=== PATIENT | male | born 1940 | race Caucasian/White ===

== ENCOUNTER → 2016-10-19 | Outpatient (CLI) | payer MEDICARE, OTHER ==
[~2016-10-19] MED LIST: AMLO1CAP7 PO; EMPA25TA PO; EZET10TA5 PO; GLIP5TAB13 PO; HYDR-3812 PO; LABE200T3 PO; LEVO500T2 PO; LEVO50TA6 PO; METF750T2 PO; MONT10TA24 PO; TERA10CA3 PO
--- OUTSIDE RECORDS SUMMARY | 2016-10-19 10:35 | XMS REPORT | Continuity of Care Document ---
Author Author [facility] Organization [facility] Address Unknown Phone Unavailable Care Team Providers Care After [employer] Program Coordinator Name Role Phone MARGARITO AMBROCIO MD PCP Insurance Providers Payer Name Policy Number Subscriber Name Relationship [employer] [id number] Gideon Ponce 19 Self / Same As Patient GE [id number] Gideon Ponce 19 Self / Same As Patient Advance Directives Directive Response Recorded Date/Time Advance Directives No 03/05/16 8:53am Resuscitation Status Full Code 03/05/16 8:53am Problems No problem information available. Medications Current Home Medications Medication Dose Units Route Directions Days/Qty Instructions Start Date Glipizide 5 Mg 5 Mg Oral Daily 03/05/16 Labetalol Hcl 200 Mg 400 Mg Oral Twice A Day take 2 (200mg) tabs 03/05 Terazosin Hcl 10 Mg 10 Mg Oral Bedtime 03/05/16 Levothyroxine Sodium 50 Mcg 50 Mcg Oral Daily 03/05/16 Metformin Hcl 750 Mg 750 Mg Oral Twice A Day 03/05/16 Empagliflozin 25 Mg 25 Mg Oral Daily 03/05/16 Ezetimibe 10 Mg 10 Mg Oral Daily 03/05/16 Montelukast Sodium 10 Mg 10 Mg Oral Bedtime 03/05/16 Amlodipine Besylate/Benazepril 1 Each 1 Each Oral Daily 03/05/16 Social History Social History Problem Response Recorded Date/Time Alcohol Use Occasionally Uses 03/05/2016 8:53am Recreational Drug Use No 03/05/2016 8:53am Recent Foreign Travel No 03/05/2016 8:53am Recent Infectious Disease Exposure No 03/05/2016 8:53am Hospitalization with Isolation Denies 03/05/2016 8:53am Smoking Status Never a Smoker 03/05/2016 9:02am Query Response Start Date Stop Date Smoking Status Never a Smoker Hospital Discharge Instructions No hospital discharge instructions. Plan of Care Discharge Date 03/05/16 9:25am Prescriptions See Medication Section Functional Status No functional status results. Allergies, Adverse Reactions, Alerts No known allergies. Immunizations No immunization records. Vital Signs Acute Vital Signs Vital Response Date/Time Pulse Rate (adult) 66 bpm (60 - 90) 03/05/2016 8:53am O2 Sat by Pulse Oximetry 94 % (88 - 100) 03/05/2016 8:53am Blood Pressure 147/84 mm Hg 03/05/2016 8:53am Height (Feet) 5 feet 03/05/2016 8:53am Height (Inches) 6.00 inches 03/05/2016 8:53am Height (Calculated Centimeters) 167.665811 cm 03/05/2016 8:53am Weight (Pounds) 220 pounds 03/05/2016 8:53am Weight (Ounces) 0.0 oz 03/05/2016 8:53am Weight (Calculated Grams) 48242.322 gm 03/05/2016 8:53am Weight (Calculated Kilograms) 99.774982 kilograms 03/05/2016 8:53am Calculated BMI 36.61 03/05/2016 8:53am Results Laboratory Results Test Name Result Units Flags Reference Collection Date/Time Result Date/ Time Comments White Blood Count 10.8 10^3/uL 4.3-11.0 03/05/2016 9:15am 03/05/2016 9: 31am Red Blood Count 4.51 10^6/uL 4.35-5.85 03/05/2016 9:15am 03/05/2016 9: 31am Hemoglobin 15.2 G/DL 13.3-17.7 03/05/2016 9:15am 03/05/2016 9:31am Hematocrit 45 % 40-54 03/05/2016 9:15am 03/05/2016 9:31am Mean Corpuscular Volume 100 FL H 80-99 03/05/2016 9:15am 03/05/2016 9: 31am Mean Corpuscular Hemoglobin 34 PG 25-34 03/05/2016 9:1503/05/2016 9: 31am Mean Corpuscular Hemoglobin Concent 34 G/DL 32-36 03/05/2016 9: 9:31am Red Cell Distribution Width 14.0 % 10.0-14.5 03/05/2016 9:2015 9:31am Platelet Count 216 10^3/uL 130-400 03/05/2016 9:03/05/2016 9:31am Mean Platelet Volume 9.4 FL 7.4-10.4 03/05/2016 9:03/05/2016 9: 31am Neutrophils (%) (Auto) 72 % 42-75 03/05/2016 9:03/05/2016 9:31am Lymphocytes (%) (Auto) 15 % 12-44 03/05/2016 9:03/05/2016 9:31am Monocytes (%) (Auto) 8 % 0-12 03/05/2016 9:03/05/2016 9:31am Eosinophils (%) (Auto) 4 % 0-10 03/05/2016 9:03/05/2016 9:31am Basophils (%) (Auto) 1 % 0-10 03/05/2016 9:03/05/2016 9:31am Neutrophils # (Auto) 7.9 X 10^3 H 1.8-7.8 03/05/2016 9:03/05/2016 9: 31am Lymphocytes # (Auto) 1.6 X 10^3 1.0-4.0 03/05/2016 9:03/05/2016 9: 31am Monocytes # (Auto) 0.8 X 10^3 0.0-1.0 03/05/2016 9:03/05/2016 9: 31am Eosinophils # (Auto) 0.4 10^3/uL H 0.0-0.3 03/05/2016 9:03/05/2016 9 :31am Basophils # (Auto) 0.1 10^3/uL 0.0-0.1 03/05/2016 9:03/05/2016 9: 31am Sodium Level 138 MMOL/L 135-145 03/05/2016 9:15am 03/05/2016 9:56am Potassium Level 4.1 MMOL/L 3.6-5.0 03/05/2016 9:15am 03/05/2016 9:56am Chloride Level 101 MMOL/L 98-107 03/05/2016 9:15am 03/05/2016 9:56am Carbon Dioxide Level 23 MMOL/L 21-32 03/05/2016 9:15am 03/05/2016 9: 56am Anion Gap 14 MMOL/L 5-14 03/05/2016 9:15am 03/05/2016 9:56am Blood Urea Nitrogen 14 MG/DL 7-18 03/05/2016 9:15am 03/05/2016 9:56am Creatinine 1.04 MG/DL 0.60-1.30 03/05/2016 9:15am 03/05/2016 9:56am BUN/Creatinine Ratio 13 03/05/2016 9:15am 03/05/2016 9:56am Estimat Glomerular Filtration Rate > 60 03/05/2016 9:15am 2015 9:56am GFR INTERPRETIVE DATA UNITS FOR ESTIMATED GFR (eGFR): mL/min/1.73 M2 REFERENCE RANGE FOR ESTIMATED GFR (eGFR) eGFR NORMAL eGFR >60 MODERATELY DECREASED eGFR 30-59 SEVERLY DECREASED eGFR 15-29 KIDNEY FAILURE <15 (OR DIALYSIS) Glucose Level 229 MG/DL H 70-105 03/05/2016 9:15am 03/05/2016 9:56am Calcium Level 9.7 MG/DL 8.5-10.1 03/05/2016 9:15am 03/05/2016 9:56am Procedures Procedure Status Date Provider(s) Tracing only of electrocardiogram Active 03/05/16 VIOLETTE MEDEL MD Encounters Encounter Location Arrival/Admit Date Discharge/Depart Date Attending Provider Departed Clinic [facility] 03/05/16 8:48am 03/05/16 9: 25am VIOLETTE MEDEL MD
--- NOTE | 2016-10-19 16:32 | Diagnostic Imaging Report ---
PA and lateral views of the chest. INDICATION: Followup right infrahilar prominence. FINDINGS: Again seen is slight prominence of the infrahilar structures on the right side probably related to vessels with no significant change from the previous exam of 04/17/2016. There is suggestion of prominent pericardial fat pad on the right side. There is slight flattening of the diaphragms compatible with mild hyperinflation. No focal infiltrate. No effusion or pneumothorax. The heart size is normal. The mediastinum appears unremarkable. IMPRESSION: Mild pulmonary hyperinflation. Unchanged slight prominence of the right hilar area, probably vascular-related with no definite lymphadenopathy or mass. Dictated by: Dictated on workstation # [id number]
== END ==
LOC: RAD 10:32
PROVIDERS: ATTEND Otolaryngology Otolaryngology/Facial Plastic Surgery
DX: J98.4 Other disorders of lung (principal)
CPT/HCPCS: 71020

== ENCOUNTER → 2019-01-14 | Outpatient (CLI) | payer MEDICARE, OTHER ==
[~2019-01-14] MED LIST changes: +ACHD5005 PO; +GADOBUTROL 10 MMOL/10 ML (GADAVIST) VIAL IV ONE; -HYDR-3812 PO; -LABE200T3 PO; +LABE200T7 PO
[2019-01-14 14:34] LABS: BASOPHILS % (AUTO) 0 % (0-10); EOSINOPHILS # (AUTO) 0.1 10^3/uL (0.0-0.3); EOSINOPHILS % (AUTO) 0 % (0-10); HEMATOCRIT 41 % (40-54); HEMOGLOBIN 13.7 G/DL (13.3-17.7); LYMPHOCYTES # (AUTO) 0.8 X 10^3 (1.0-4.0); LYMPHOCYTES % (AUTO) 6 % (12-44); MEAN CORPUSCULAR HEMOGLOBIN 33 PG (25-34); MEAN CORPUSCULAR HGB CONC 34 G/DL (32-36); MEAN CORPUSCULAR VOLUME 100 FL (80-99); MEAN PLATELET VOLUME 9.8 FL (7.4-10.4); MONOCYTES # (AUTO) 0.7 X 10^3 (0.0-1.0); MONOCYTES % (AUTO) 5 % (0-12); NEUTROPHILS # (AUTO) 12.8 X 10^3 (1.8-7.8); NEUTROPHILS % (AUTO) 89 % (42-75); PLATELET COUNT 189 10^3/uL (130-400); RED CELL DISTRIBUTION WIDTH 13.6 % (10.0-14.5); WHITE BLOOD COUNT 14.4 10^3/uL (4.3-11.0)
[2019-01-14 14:54] LABS: BAND NEUTROPHILS 6 %; BASOPHILS % (MANUAL) 0 %; EOSINOPHILS % (MANUAL) 2 %; LYMPHOCYTES % (MANUAL) 7 %; METAMYELOCYTES % 1 %; MONOCYTES % (MANUAL) 3 %; NEUTROPHILS % (MANUAL) 81 %; RBC MORPH NORMAL
--- NOTE | 2019-01-14 15:19 | Diagnostic Imaging Report ---
PROCEDURE: MR imaging of the brain with and without contrast. TECHNIQUE: Multiplanar, multisequence MR imaging of the brain was performed with and without contrast. INDICATION: Dementia. COMPARISON: No prior studies are available for comparison. FINDINGS: The ventricles and sulci are consistent with the patient's age. There are fairly significant periventricular and subcortical white matter signal abnormalities noted consistent with chronic microvascular ischemia. No diffusion restriction is identified. Normal expected flow-voids within the carotid siphons are seen. There is no midline shift. No acute intra-axial or extra-axial hemorrhage is detected. No abnormal enhancement following contrast administration is seen. Corpus callosum is unremarkable. Sella and parasellar structures are unremarkable. There is some mucosal thickening to bilateral maxillary sinuses. IMPRESSION: Changes of chronic microvascular ischemia. The study is otherwise unremarkable. Dictated by: Dictated on workstation # [id number]
== END ==
LOC: RAD 14:14
PROVIDERS: ATTEND Family Medicine
DX: F03.90 Unspecified dementia, unspecified severity, without behavioral disturbance, psychotic disturbance, mood disturbance, and anxiety (principal); I67.82 Cerebral ischemia; D72.829 Elevated white blood cell count, unspecified
CPT/HCPCS: 36415; 70553; 85007; 85027

== ENCOUNTER → 2019-02-04 | Outpatient (CLI) | payer MEDICARE, OTHER ==
[~2019-02-04] VITALS: Ht 162.6 cm; Wt 93.0 kg
[~2019-02-04] MED LIST changes: +CATHETER FLUSH 10 ML SYR IV PRN; -GADOBUTROL 10 MMOL/10 ML (GADAVIST) VIAL IV ONE; +REGADENOSON 0.4 MG/5 ML SYR (LEXISCAN) IV ONE
[2019-02-04 09:28] VITALS: BP 113/66
[2019-02-04 09:30] VITALS: BP 105/64
--- NOTE | 2019-02-04 17:12 | STRESS TEST ---
DATE OF SERVICE: 02/04/2019 LEXISCAN MYOVIEW STRESS TEST REFERRING PHYSICIAN: Sugar Iyer MD. FINDINGS: Baseline heart rate is 57, baseline blood pressure 133/78. Baseline EKG is sinus rhythm with no ischemic changes. SUMMARY: The patient was injected with 10.46 mCi of technetium-99 Myoview and the resting images were obtained and then the patient received 0.4 mg of Lexiscan followed by 30.2 mCi of technetium-99 Myoview. Throughout the test, there were no EKG changes. The resting and stress images were reviewed and compared in the short axis, horizontal long axis, and vertical long axis views. Review of the images showed diaphragmatic attenuation with typical male pattern. No significant ischemia or infarction was seen. SSS is 3, SDS 3, TID value 1.01. On the gated images, the left ventricle appeared to be normal size with normal contractility. Calculated ejection fraction is 71%. CONCLUSION: 1. The patient tolerated Lexiscan well. 2. Diaphragmatic attenuation with typical male pattern with no significant ischemia or infarction on SPECT images. 3. Normal left ventricular size with normal contractility. Calculated ejection fraction is 71%. Job ID: [id number] DocumentID: [id number] Dictated Date: 02/04/2019 16:41:11 Ski Lift Attendant Date: 02/04/2019 17:11:42 Dictated By: YARIEL ESPINO MD
== END ==
LOC: CARD 07:33
PROVIDERS: ATTEND Internal Medicine Cardiovascular Disease
DX: I10 Essential (primary) hypertension (principal); E78.2 Mixed hyperlipidemia; E11.9 Type 2 diabetes mellitus without complications; F03.90 Unspecified dementia, unspecified severity, without behavioral disturbance, psychotic disturbance, mood disturbance, and anxiety
CPT/HCPCS: 78452; 93017

== ENCOUNTER → 2019-05-21 | Outpatient (CLI) | payer MEDICARE, OTHER ==
[~2019-05-21] MED LIST changes: +AMLO-65 PO; -AMLO1CAP7 PO; -CATHETER FLUSH 10 ML SYR IV PRN; -REGADENOSON 0.4 MG/5 ML SYR (LEXISCAN) IV ONE
[2019-05-21 16:43] LABS: ABSOLUTE RETIC # 71 10e9/L (24-90); BASOPHILS # (AUTO) 0.1 10^3/uL (0.0-0.1); BASOPHILS % (AUTO) 1 % (0-10); EOSINOPHILS # (AUTO) 0.3 10^3/uL (0.0-0.3); EOSINOPHILS % (AUTO) 2 % (0-10); HEMATOCRIT 44 % (40-54); HEMOGLOBIN 14.4 G/DL (13.3-17.7); LYMPHOCYTES # (AUTO) 1.4 X 10^3 (1.0-4.0); LYMPHOCYTES % (AUTO) 14 % (12-44); MEAN CORPUSCULAR HEMOGLOBIN 33 PG (25-34); MEAN CORPUSCULAR HGB CONC 33 G/DL (32-36); MEAN CORPUSCULAR VOLUME 99 FL (80-99); MEAN PLATELET VOLUME 9.3 FL (7.4-10.4); MONOCYTES # (AUTO) 0.7 X 10^3 (0.0-1.0); MONOCYTES % (AUTO) 7 % (0-12); NEUTROPHILS # (AUTO) 7.9 X 10^3 (1.8-7.8); NEUTROPHILS % (AUTO) 77 % (42-75); PLATELET COUNT 246 10^3/uL (130-400); RED CELL DISTRIBUTION WIDTH 14.1 % (10.0-14.5); RETICULOCYTE % 1.61 % (0.50-2.40); WHITE BLOOD COUNT 10.3 10^3/uL (4.3-11.0)
[2019-05-21 17:04] LABS: ALANINE AMINOTRANSFERASE 36 U/L (0-55); ALBUMIN 4.2 GM/DL (3.2-4.5); ALKALINE PHOSPHATASE 56 U/L (40-136); BILIRUBIN,TOTAL 0.4 MG/DL (0.1-1.0); BUN/CREATININE RATIO 19; CALCIUM 9.7 MG/DL (8.5-10.1); CARBON DIOXIDE 25 MMOL/L (21-32); CHLORIDE 105 MMOL/L (98-107); CREATININE SERUM 1.11 MG/DL (0.60-1.30); GFR ESTIMATED > 60; GLUCOSE 128 MG/DL (70-105); POTASSIUM 4.6 MMOL/L (3.6-5.0); SODIUM 135 MMOL/L (135-145); TOTAL PROTEIN 7.4 GM/DL (6.4-8.2)
[2019-05-21 17:23] LABS: VALPROIC ACID < 2.0 UG/ML (50.0-100.0)
[2019-05-21 18:02] LABS: BAND NEUTROPHILS 2 %; BASOPHILS % (MANUAL) 0 %; EOSINOPHILS % (MANUAL) 3 %; LYMPHOCYTES % (MANUAL) 15 %; MONOCYTES % (MANUAL) 7 %; NEUTROPHILS % (MANUAL) 72 %; REACTIVE LYMPHOCYTES 1 %
[2019-05-21 18:03] LABS: RBC MORPH NORMAL
== END ==
LOC: LAB 16:26
PROVIDERS: ATTEND Nurse Practitioner Family
DX: I10 Essential (primary) hypertension (principal); D72.819 Decreased white blood cell count, unspecified; Z79.899 Other long term (current) drug therapy
CPT/HCPCS: 36415; 80053; 80164; 85007; 85027; 85045

== ENCOUNTER → 2020-06-01 | Outpatient (CLI) | payer MEDICARE, OTHER ==
[~2020-06-01] MED LIST changes: +EZET10TA17 PO; -EZET10TA5 PO; -METF750T2 PO; +METF750T45 PO; -MONT10TA24 PO; +MONT10TA26 PO
== END ==
LOC: LABNPT 17:08
PROVIDERS: ATTEND Family Medicine
DX: Z01.89 Encounter for other specified special examinations (principal)
CPT/HCPCS: 87070; 87077; 87205